=== PATIENT | female | born 1980 | race Caucasian/White ===

== ENCOUNTER 2019-08-04 12:15 | Inpatient (IN) | payer OTHER ==
[~2019-08-04] VITALS: Ht 172.7 cm; Wt 79.8 kg
[~2019-08-04 12:15] MED LIST: IBUP800 PO
[2019-08-04 13:06] LABS: BASOPHILS ABSOLUTE AUTO 0.02 K/mm3 (0.00-0.23); BASOPHILS PERCENT AUTO 0 % (0-2); EOSINOPHILS ABSOLUTE AUTO 0.03 K/mm3 (0.00-0.68); EOSINOPHILS PERCENT AUTO 0 % (0-6); Hemoglobin 10.8 g/dL (11.5-16.0); IMMATURE GRAN ABSOLUTE AUTO 0.06 K/mm3 (0.00-0.10); IMMATURE GRAN PERCENT AUTO 1 % (0-1); LYMPHOCYTES ABSOLUTE AUTO 2.18 K/mm3 (0.84-5.20); LYMPHOCYTES PERCENT AUTO 27 % (21-46); MONOCYTES ABSOLUTE AUTO 0.47 K/mm3 (0.16-1.47); MONOCYTES PERCENT AUTO 6 % (4-13); Mean Corpuscular HGB Conc 32.7 g/dL (31.5-36.5); Mean Corpuscular Volume 92 fL (80-100); Mean Platelet Volume 10.3 fL (9.1-12.4); NEUTROPHILS ABSOLUTE AUTO 5.47 K/mm3 (1.96-9.15); NEUTROPHILS PERCENT AUTO 67 % (41-73); Platelet Count 231 K/mm3 (150-400); RDW Coefficient Variation 13.1 % (11.7-14.2); RDW Standard Deviation 43.6 fL (35.1-46.3); White Blood Cell Count 8.23 K/mm3 (4.00-11.30)
[2019-08-04] MEDS ORDERED: EXPECTA PRENAT1 EACH (13:12)
[2019-08-04] MEDS ORDERED: BUSP5 (13:13)
[2019-08-05 05:59] LABS: BASOPHILS ABSOLUTE AUTO 0.01 K/mm3 (0.00-0.23); BASOPHILS PERCENT AUTO 0 % (0-2); EOSINOPHILS ABSOLUTE AUTO 0.04 K/mm3 (0.00-0.68); EOSINOPHILS PERCENT AUTO 0 % (0-6); Hematocrit 32.9 % (33.0-51.0); Hemoglobin 10.7 g/dL (11.5-16.0); IMMATURE GRAN ABSOLUTE AUTO 0.06 K/mm3 (0.00-0.10); IMMATURE GRAN PERCENT AUTO 1 % (0-1); LYMPHOCYTES ABSOLUTE AUTO 2.11 K/mm3 (0.84-5.20); LYMPHOCYTES PERCENT AUTO 19 % (21-46); MONOCYTES ABSOLUTE AUTO 0.66 K/mm3 (0.16-1.47); MONOCYTES PERCENT AUTO 6 % (4-13); Mean Corpuscular HGB 30.2 pg (26.0-34.0); Mean Corpuscular HGB Conc 32.5 g/dL (31.5-36.5); Mean Corpuscular Volume 93 fL (80-100); Mean Platelet Volume 10.8 fL (9.1-12.4); NEUTROPHILS ABSOLUTE AUTO 8.22 K/mm3 (1.96-9.15); NEUTROPHILS PERCENT AUTO 74 % (41-73); Platelet Count 193 K/mm3 (150-400); RDW Coefficient Variation 13.2 % (11.7-14.2); RDW Standard Deviation 44.7 fL (35.1-46.3); Red Blood Cell Count 3.54 M/mm3 (3.80-5.20)
--- NOTE | 2019-08-05 13:26 | NUR ---
PT SLEEPING AT THIS TIME, REQUESTED BABY BE BROUGHT TO COMMUTATOR INSPECTOR
[2019-08-05] MEDS ORDERED: IBUP800 PO (14:22)
--- NOTE | 2019-08-05 23:50 | NUR ---
DC TO BOARDER DC INSTRUCTIONS GIVEN. PAIN WELL CONTROLLED W/ ORAL MEDICATION. BLEEDING AND VS WNL. CARING FOR SELF AND NB APPROPRIATLY.
== END 2019-08-05 23:48 | disposition home or self-care (01) | DRG 807 ==
LOC: OBS 12:15 → BC 12:15 → OBS 12:33 → BC 12:33
PROVIDERS: ADMIT Nurse Practitioner Obstetrics & Gynecology
PROC: 10E0XZZ Delivery of Products of Conception, External Approach (ICD-10-PCS; principal; 2019-08-04)
PROC: 10907ZC Drainage of Amniotic Fluid, Therapeutic from Products of Conception, Via Natural or Artificial Opening (ICD-10-PCS; 2019-08-04)
PROC: 3E0R3BZ Introduction of Anesthetic Agent into Spinal Canal, Percutaneous Approach (ICD-10-PCS; 2019-08-04)
PROC: 3E033VJ Introduction of Other Hormone into Peripheral Vein, Percutaneous Approach (ICD-10-PCS; 2019-08-04)
DX: O80 Encounter for full-term uncomplicated delivery (principal); Z37.0 Single live birth; Z3A.39 39 weeks gestation of pregnancy
CPT/HCPCS: 36415; 51702; 85025; 86900; 86901; J1885; J2001; J2210; J2405; J2590; J3010; J7120

== ENCOUNTER 2020-09-29 06:14 | Day surgery (SDC) | payer OTHER ==
[~2020-09-29] VITALS: Ht 174 cm; Wt 74.2 kg
[~2020-09-29 06:14] MED LIST changes: +BUSP5 PO; +ESCI10 PO; +EXPECTA PRENAT1 EACH; +MULVITA PO; +PSEU120ER PO; +VITAMIN B125000 MC1 PO; +VITAMIN D310 MC4 PO
--- NOTE | 2020-09-29 06:57 | NUR ---
Ambulatory in Day Surgery History, Chart, Medications and Allergies reviewed before start of procedure.Patient confirms NPO status and agrees with scheduled surgery. Patient reports completing Chlorhexadine shower X2 prior to admission to hospital.Patient States Post-Procedure ride home has been arranged.
--- NOTE | 2020-09-29 10:31 | NUR ---
PT AWAKE AND ALERT, DENIES NAUSEA OR PAIN. GIVEN RX AND DC INSTRUCTIONS. PT VERBALIZES AN UNDERSTANDING s QUESTIONS. DRESSING CDI, ABD BINDER IN PLACE. IV DC'D, CATH INTACT AND PRESSURE DRESSING APPLIED. PT TAKEN OTD IN NAD VIA WC, ESCORTED BY VOLUNTEER. AWAITING SAFE RIDE HOME BY MOTHER.
== END 2020-09-29 23:11 | disposition home or self-care (01) ==
LOC: ORSCMMR 06:14 → ORD 07:30 → ORSCMMR 07:30
PROVIDERS: Surgery
PROC: 0WUF0JZ Supplement Abdominal Wall with Synthetic Substitute, Open Approach (ICD-10-PCS; principal; 2020-09-29 07:30)
DX: K42.9 Umbilical hernia without obstruction or gangrene (principal); F41.8 Other specified anxiety disorders; Z79.899 Other long term (current) drug therapy
CPT/HCPCS: C1781; J0690; J1100; J1885; J2250; J2405; J2550; J2704; J3010; J7120